=== PATIENT | female | born 1965 | race African-American/Black ===

== ENCOUNTER 2017-12-13 00:10 | Emergency (ER) | payer MEDICAID ==
[~2017-12-13] VITALS: Ht 162.6 cm; Wt 77.1 kg
[2017-12-13] MEDS ORDERED: Ipratropium 0.02% Inh Soln 2.5ml UD HHN ONE (00:30)
[2017-12-13] MEDS ORDERED: Albuterol ud Inhalation HHN ONE (00:30)
--- NOTE | 2017-12-13 00:34 | Emergency Room Report ---
History of Present Illness General Chief Complaint: Asthma Source: Patient Present Illness HPI Is a 52-year-old female with history of asthma. She presents with asthma exacerbation. Onset for last 3 days. She has coughing congestion. Also sore throat. Losing her voice. Her inhaler is not helping. Her insurance is not approving her for her Qvar. When she was on Qvar she was well-controlled. Coughing causing pain in her chest. No nausea no vomiting. No fever or chills. Pain is 9 out of 10. Allergies: Coded Allergies: ASPIRIN (Verified Allergy, Unknown, 12/13/17) Patient History Past Medical History: see triage record, old chart reviewed, asthma Past Surgical History: other Pertinent Family History: none Social History: Denies: smoking Now: No Immunizations: other Reviewed Nursing Documentation: PMH: Agreed; PSxH: Agreed Nursing Documentation-PMH Past Medical History: No History, Except For Hx Asthma: Yes Review of Systems Eye: Denies: eye pain, blurred vision ENT: Reports: throat pain; Denies: ear pain, nose congestion, throat swelling Respiratory: Reports: cough, shortness of breath, wheezing Cardiovascular: Denies: chest pain, palpitations Gastrointestinal: Denies: abdominal pain, diarrhea, nausea, vomiting Musculoskeletal: Denies: back pain, joint pain Skin: Denies: rash Neurological: Denies: headache, numbness Endocrine: Denies: increased thirst, increased urine Hematologic/Lymphatic: Denies: easy bruising All Other Systems: negative except mentioned in HPI Physical Exam Vital Signs Date Time Temp Pulse Resp B/P (MAP) Pulse Ox O2 Delivery O2 Flow Rate FiO2 12/13/17 00:14 97.7 104 27 139/78 100 Room Air 97.7 vitals normal Sp02 EP Interpretation: reviewed, normal General Appearance: well appearing, no apparent distress, alert Head: normocephalic, atraumatic Eyes: bilateral eye PERRL, bilateral eye EOMI ENT: hearing grossly normal, no angioedema, pharyngeal erythema Neck: full range of motion, supple, no meningismus Respiratory: chest non-tender, decreased breath sounds, accessory muscle use, wheezing Cardiovascular #1: regular rate, rhythm, no murmur Gastrointestinal: normal bowel sounds, non tender, no mass, no organomegaly, no bruit, non-distended Musculoskeletal: back normal, gait/station normal, normal range of motion Neurologic: alert, oriented x3, responsive Psychiatric: mood/affect normal Skin: warm/dry Medical Decision Making Diagnostic Impression: Primary Impression: Asthma attack Qualified Codes: J45.21 - Mild intermittent asthma with (acute) exacerbation Additional Impression: Upper respiratory infection, viral ER Course Patient with a viral upper respiratory infection exacerbating her asthma. No evidence of any sepsis, pneumonia, PE, dissection to name a few. No evidence of bacterial infection. He felt better after breathing treatment. We'll discharge home. Last Vital Signs Date Time Temp Pulse Resp B/P (MAP) Pulse Ox O2 Delivery O2 Flow Rate FiO2 12/13/17 00:15 104 27 Room Air 12/13/17 00:14 97.7 139/78 100 97.7 Status: improved Disposition: HOME, SELF-CARE Condition: Stable Scripts Fluticasone Furoate (Arnuity Ellipta) 200 Mcg Blst.w.dev 200 MCG IH DAILY, #1 UNIT Prov: HELIO LUNA M.D. 12/13/17 Prednisone* (PREDNISONE*) 20 Mg Tablet 60 MG ORAL DAILY, #12 TAB Prov: HELIO LUNA M.D. 12/13/17 Patient Instructions: Asthma, Adult Additional Instructions: Follow-up with your doctor in 7 days. Return if symptom worsen. HELIO LUNA M.D. December 13, 2017 00:34
[2017-12-13] MEDS ORDERED: ARNUITY ELLIP200 MCG IH (01:20)
[2017-12-13] MEDS ORDERED: PREDNISONE20 MG ORAL (01:20)
[2017-12-13 01:27] VITALS: BP 139/78
== END 2017-12-13 01:30 | disposition home or self-care (01) ==
LOC: EMR 00:29
DX: J45.901 Unspecified asthma with (acute) exacerbation (principal); J06.9 Acute upper respiratory infection, unspecified; B34.9 Viral infection, unspecified; Z88.6 Allergy status to analgesic agent
CPT/HCPCS: 94640; 94664; 99284; J7512

== ENCOUNTER 2020-08-25 22:06 | Emergency (ER) | payer MEDICAID ==
[~2020-08-25] VITALS: Ht 162.6 cm; Wt 81.6 kg
[~2020-08-25 22:06] MED LIST: ARNUITY ELLIP200 MCG IH; PREDNISONE20 MG ORAL
--- NOTE | 2020-08-25 23:05 | NUR ---
ED Nurse Note: Prt walked into the ed due to right shoulder pain x 1 day. denied trauma or fall. Pt stated, she is unable to gum remover her right upper arm. vital are stable. pt is A&Ox4 , verbal and ambulatory. No sob,fever, and cough at the moment. We will keep monitoring the pt.
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
[2020-08-25 23:09] VITALS: BP 128/75
[2020-08-25] MEDS ORDERED: HYDROmorphone 1mg/ml Carpuject IM ONE (23:15)
[2020-08-25] MEDS ORDERED: PREDNISONE20 MG ORAL (23:36)
[2020-08-25 23:43] VITALS: BP 132/78
--- NOTE | 2020-08-25 23:44 | NUR ---
ER DISCHARGE NOTE: Patient is cleared to be discharged per ERMD, pt is aox4, on room air, with stable vital signs. pt was given dc and prescription instructions, pt was able to verbalize understanding, pt id band removed without complications. pt is able to ambulate with steady gait. pt took all belongings.
--- NOTE | 2020-08-26 15:14 | Diagnostic Imaging Report ---
. Indication: Right shoulder pain Technique: 3 views of the right shoulder Comparison: none Findings: There is a right shoulder prosthesis which appears well aligned. No acute fracture. No dislocation Impression: No acute process
== END 2020-08-25 23:43 | disposition home or self-care (01) ==
LOC: EMR 22:28
DX: M25.511 Pain in right shoulder (principal); M75.51 Bursitis of right shoulder; J45.909 Unspecified asthma, uncomplicated; Z88.6 Allergy status to analgesic agent
CPT/HCPCS: 73030; 96372; J1170; Z7502; 99283

== ENCOUNTER 2020-11-01 01:04 | Emergency (ER) | payer MEDICAID ==
[~2020-11-01] VITALS: Ht 162.6 cm; Wt 77.1 kg
--- NOTE | 2020-11-01 01:18 | Emergency Room Report ---
History of Present Illness General Chief Complaint: Abdominal Pain Source: Patient Present Illness HPI This is a 55-year-old female with no significant past medical history patient presents with chief complaint of epigastric pain. Onset for last few days. Worse with eating. No nausea no vomiting. No diarrhea. She says she felt like her food getting stuck there. She says she keep eating but it can get full. Last bowel movement was a couple days ago. Denies any other complaint. Pain is 8 out of 10. Similar symptom in the past. She said many years ago she had endoscopy but it did not show anything. Allergies: Coded Allergies: ASPIRIN (Verified Allergy, Unknown, 12/13/17) COVID-19 Screening Contact w/high risk pt: No Experienced COVID-19 symptoms?: No COVID-19 Testing performed COMPLAINT INVESTIGATIONS OFFICER: No COVID-19 Screening: Negative COVID-19 Patient History Past Medical History: see triage record, old chart reviewed Past Surgical History: none Pertinent Family History: none Social History: Denies: smoking Now: No Immunizations: other Reviewed Nursing Documentation: PMH: Agreed; PSxH: Agreed Nursing Documentation-PMH Hx Asthma: Yes Review of Systems Eye: Denies: eye pain, blurred vision ENT: Denies: ear pain, nose congestion, throat swelling Respiratory: Denies: cough, shortness of breath Cardiovascular: Denies: chest pain, palpitations Gastrointestinal: Reports: abdominal pain; Denies: diarrhea, nausea, vomiting Musculoskeletal: Denies: back pain, joint pain Skin: Denies: rash Neurological: Denies: headache, numbness Endocrine: Denies: increased thirst, increased urine Hematologic/Lymphatic: Denies: easy bruising All Other Systems: negative except mentioned in HPI Physical Exam Vital Signs Date Time Temp Pulse Resp B/P (MAP) Pulse Ox O2 Delivery O2 Flow Rate FiO2 11/01/20 01:05 98.8 95 18 157/66 (96) 94 Room Air Vitals with high blood pressure Sp02 EP Interpretation: reviewed, normal General Appearance: well appearing, no apparent distress, alert Head: normocephalic, atraumatic Eyes: bilateral eye PERRL, bilateral eye EOMI ENT: hearing grossly normal, normal pharynx Neck: full range of motion, supple, no meningismus Respiratory: chest non-tender, lungs clear, normal breath sounds Cardiovascular #1: regular rate, rhythm, no murmur Gastrointestinal: normal bowel sounds, no mass, no organomegaly, no bruit, non- distended, tenderness - Epigastric tenderness, mild Musculoskeletal: back normal, normal range of motion, gait/station normal Psychiatric: mood/affect normal Medical Decision Making Diagnostic Impression: Primary Impression: Pancreatitis, acute Qualified Codes: K85.20 - Alcohol induced acute pancreatitis without necrosis or infection ER Course This patient presents with abdominal pain. CT scan and laboratory data suggest acute pancreatitis. Patient admits to drinking about a bottle of wine on the weekend. She says she normally drinks less during the weekdays. No evidence of any gallstone on the CAT scan. No evidence of perforation. Because of the elev ated lipase, will admit versus transfer based on her insurance. Patient received IV fluid and pain medication. She felt better. Still having pain in the left upper quadrant. I discussed the case with Dr. Salgado [facility]. She accept the patient for transfer. CT/MRI/US Diagnostic Results CT/MRI/US Diagnostic Results : Imaging Test Ordered: CT abdomen and pelvis Impression Read by radiologist. Mild peripancreatic stranding about the pancreatic tail consistent with acute pancreatitis. Last Vital Signs Date Time Temp Pulse Resp B/P (MAP) Pulse Ox O2 Delivery O2 Flow Rate FiO2 11/01/20 01:11 95 18 Room Air 11/01/20 01:05 98.8 157/66 (96) 94 Status: improved Disposition: SHORT-TERM HOSP Condition: Stable Referrals: NON PHYSICIAN (PCP) El Salgado MD Nov 01, 2020 01:18
[2020-11-01 01:30] VITALS: BP 157/66
[2020-11-01] MEDS ORDERED: Morphine Sulfate 4mg/ml Inj IVP ONE (01:30)
--- NOTE | 2020-11-01 01:30 | NUR ---
ED Nurse Note: pt from home c/o of abdominal pain, nausea, no vomiting, last BM 10/31/20, pt has hx of shoulder and hip replacement, aox4, ambulatory, vitals stable blood drawn and sent to lab
[2020-11-01 01:35] LABS: BASOPHILS % (AUTO) 1.5 % (0.0-2.0); EOSINOPHILS % (AUTO) 1.8 % (0.0-3.0); HEMATOCRIT 45.2 % (37.0-47.0); HEMOGLOBIN 14.8 G/DL (12.0-16.0); MEAN CORPUSCULAR VOLUME 100 FL (80-99); MONOCYTES % (AUTO) 7.1 % (1.0-10.0); NEUTROPHILS % (AUTO) 64.6 % (45.0-75.0); PLATELET COUNT 281 K/UL (150-450); RED BLOOD COUNT 4.52 M/UL (4.20-5.40); RED CELL DISTRIBUTION WIDTH 13.6 % (11.6-14.8); WHITE BLOOD COUNT 8.2 K/UL (4.8-10.8)
[2020-11-01 01:46] LABS: ANION GAP 11 mmol/L (5-15); BLOOD UREA NITROGEN 19 mg/dL (7-18); CALCIUM 9.6 MG/DL (8.5-10.1); CARBON DIOXIDE 28 MMOL/L (21-32); CHLORIDE 103 MMOL/L (98-107); CREATININE 1.1 MG/DL (0.55-1.30); POTASSIUM 4.2 MMOL/L (3.5-5.1); SODIUM 141 MMOL/L (136-145)
[2020-11-01 01:51] LABS: ALANINE AMINOTRANSFERASE 17 U/L (12-78); ALBUMIN 4.1 G/DL (3.4-5.0); ALKALINE PHOSPHATASE 77 U/L (46-116); ASPARTATE AMINO TRANSFERASE 15 U/L (15-37); BILIRUBIN,TOTAL 0.2 MG/DL (0.2-1.0)
--- NOTE | 2020-11-01 02:17 | NUR ---
ED Nurse Note: CT complete, urine sent to lab
[2020-11-01 02:18] LABS: APPEARANCE,URINE CLEAR; BILIRUBIN, URINE NEGATIVE (NEGATIVE); COLOR,URINE PALE YELLOW; GLUCOSE, URINE (UA) NEGATIVE (NEGATIVE); KETONES,URINE NEGATIVE (NEGATIVE); LEUKOCYTE ESTERASE ,URINE NEGATIVE (NEGATIVE); NITRITE,URINE NEGATIVE (NEGATIVE); PH,URINE 5 (4.5-8.0); PROTEIN,URINE NEGATIVE (NEGATIVE); UROBILINOGEN,URINE NORMAL MG/DL (0.0-1.0)
--- NOTE | 2020-11-01 02:25 | Diagnostic Imaging Report ---
EXAM: CT Abdomen and Pelvis Without Intravenous Contrast CLINICAL HISTORY: ABD PAIN TECHNIQUE: Axial computed tomography images of the abdomen and pelvis without intravenous contrast. CTDI is 9.9 mGy and DLP is 492.1 mGy-cm. One or more of the following dose reduction techniques were used: automated exposure control, adjustment of the mA and/or kV according to patient size, use of iterative reconstruction technique. COMPARISON: No relevant prior studies available. FINDINGS: Lung bases: Basilar atelectasis. No mass. No consolidation. ABDOMEN: Liver: Unremarkable. Gallbladder and bile ducts: No calcified gallstones. No gallbladder distension. No ductal dilation. Pancreas: Mild peripancreatic stranding about the pancreatic tail. No ductal dilation. Spleen: Unremarkable. No splenomegaly. Adrenals: Unremarkable. No mass. Kidneys and ureters: Unremarkable. No obstructing stones. No hydronephrosis. Stomach and bowel: Unremarkable. No obstruction. No mucosal thickening. PELVIS: Appendix: No findings to suggest acute appendicitis. Bladder: Unremarkable. No stones. Reproductive: Enlarged lobulated appearance of the uterus.. ABDOMEN and PELVIS: Intraperitoneal space: Unremarkable. No free air. No significant fluid collection. Bones/joints: No acute fracture. No dislocation. Bilateral total hip arthroplasty hardware in place. Soft tissues: Unremarkable. Vasculature: Minimal calcific atherosclerotic plaque of the infrarenal abdominal aorta.. No abdominal aortic aneurysm. Lymph nodes: Multiple calcified periportal lymph nodes. No enlarged lymph nodes. IMPRESSION: Mild peripancreatic stranding about the pancreatic tail consistent with acute interstitial edematous pancreatitis.
[2020-11-01] MEDS ORDERED: Hydromorphone 0.5mg/0.5ml inj ONE (02:43)
[2020-11-01] MEDS ORDERED: Hydromorphone 0.5mg/0.5ml inj IVP ONE (02:45)
[2020-11-01] MEDS ORDERED: HYDROmorphone 1mg/ml Carpuject IVP ONE (02:45)
--- NOTE | 2020-11-01 07:23 | NUR ---
Received patient in bed. Stable. No complaints at present. Awaiting x-ray.
[2020-11-01 09:12] VITALS: BP 157/66
== END 2020-11-01 09:15 | disposition short-term general hospital (02) ==
LOC: EMR 01:13
DX: K85.20 Alcohol induced acute pancreatitis without necrosis or infection (principal); Z88.6 Allergy status to analgesic agent
CPT/HCPCS: 36415; 74176; 80053; 81003; 83690; 85025; 96361; 96374; 96375; J1170; J2270; Z7502; 99285